=== PATIENT | male | born 1965 | race Caucasian/White ===

== ENCOUNTER → 2017-12-15 | Outpatient (CLI) | payer OTHER | LOC: M.RAD 09:29 | DX: R05 Cough (principal); R06.02 Shortness of breath; Z87.81 Personal history of (healed) traumatic fracture ==

== ENCOUNTER → 2018-11-30 | Outpatient (CLI) | payer OTHER ==
--- NOTE | 2018-12-07 14:42 | SLEEP ---
[address] [address] SLEEP STUDY REPORT Name: AMYMIRTA Diallo Room: [facility]#: [id number] Admission: 11/30/18 Attend Phys: Yomi Hand Discharge: Date of : 65 Report #: [id number] THIS REPORT FOR: //name// CC: ANDREW Rudolph This study has been reviewed in its entirety by a board certified sleep specialist DATE OF SERVICE: 12/01/2018 ATTENDING PHYSICIAN: Andrew Rudolph DO. The patient is a 53-year-old who weighs 219 pounds. The patient's BMI is 31.4. The patient underwent home sleep study performed at [facility]. Total recording time was 402 minutes. During the night study, the patient had 10 obstructive apneas, no mixed or central apneas and 111 hypopneas. The patient's apnea hypopnea index was 18 per hour. Supine index 18 per hour as well. Nocturnal oximetry study revealed an average oxygen saturation of 92%, the lowest of 80%. 9 minutes were spent at an oxygen saturation of less than 88%. Mean heart rate was 68 beats per minute, with a maximum of 97 beats per minute. IMPRESSION: 1. Moderate sleep apnea-hypopnea syndrome at an AHI of 18 per hour. 2. Mild nocturnal hypoxia secondary to obstructive sleep apnea. RECOMMENDATIONS: 1. The patient would benefit from treatment of sleep apnea with CPAP. Either in-lab CPAP titration versus home auto titration can be considered. 2. Alternate treatment option would include use of an oral appliance. 3. The patient should follow up in 4-6 weeks after above treatment is rendered to assess for compliance and to document clinical improvement. 4. Weight loss is advised. 5. Avoid [employer] depressants. 6. Cautioned regarding driving until symptoms of sleep apnea resolve with the above recommendations. <ELECTRONICALLY SIGNED> By: Martin Ellsworth MD 12/07/18 [id number] Ellsworth MD /nt
== END ==
LOC: M.SLEEPLAB 15:24
DX: G47.33 Obstructive sleep apnea (adult) (pediatric) (principal); R09.02 Hypoxemia; G47.9 Sleep disorder, unspecified